=== PATIENT | female | born 1995 | race Caucasian/White ===

== ENCOUNTER 2019-05-07 15:17 | Emergency (ER) | payer MEDICAID ==
[~2019-05-07] VITALS: Ht 157.5 cm; Wt 59.0 kg
[2019-05-07 15:20] VITALS: Ht 157.5 cm; Wt 59.0 kg
[2019-05-07 17:23] VITALS: BP 112/66
== END 2019-05-07 17:23 | disposition home or self-care (01) ==
LOC: ED 15:17
DX: G40.909 Epilepsy, unspecified, not intractable, without status epilepticus (principal); F17.210 Nicotine dependence, cigarettes, uncomplicated; F20.0 Paranoid schizophrenia; Z98.890 Other specified postprocedural states; Z71.6 Tobacco abuse counseling
CPT/HCPCS: 99406